=== PATIENT | female | born 1975 | race Caucasian/White ===

== ENCOUNTER 2023-05-02 11:18 | Emergency (ER) | payer OTHER ==
[~2023-05-02] VITALS: Ht 170.2 cm; Wt 68.0 kg
[~2023-05-02 11:18] MED LIST: CLIN150 PO; DOXY100 PO; ERYT.5TO OD; OXYACE5T PO
[2023-05-02 11:35] VITALS: BP 108/64
[2023-05-02] MEDS ORDERED: Cleocin HCl150 MG PO (12:47)
== END 2023-05-02 12:54 | disposition home or self-care (01) ==
LOC: ER 11:18
DX: L03.113 Cellulitis of right upper limb (principal); Z88.2 Allergy status to sulfonamides; Z88.1 Allergy status to other antibiotic agents
CPT/HCPCS: 99282; A9270